=== PATIENT | male | born 1960 | race Caucasian/White ===

== ENCOUNTER 2021-10-14 12:59 | Emergency (ER) | payer BC, OTHER ==
[2021-10-14] MEDS ORDERED: Lidocaine 1% 10 ML MDV INJECT ONE (13:20)
[2021-10-14] MEDS ORDERED: Bupivacaine 0.5% 10 ML SDV INJECT ONE (13:20)
[2021-10-14] MEDS ORDERED: Diphtheria,Pertussis(Acell),Tetanus Vaccine 0.5 ML Syringe IM ONE (13:20)
== END 2021-10-14 15:30 | disposition home or self-care (01) ==
LOC: JD.ED 12:59
DX: S61.112A Laceration without foreign body of left thumb with damage to nail, initial encounter (principal); Z72.0 Tobacco use; Z23 Encounter for immunization; W26.8XXA Contact with other sharp object(s), not elsewhere classified, initial encounter; Y99.0 Civilian activity done for income or pay
CPT/HCPCS: 64450; 73140; 90471; 90715; 99283; J3490

== ENCOUNTER 2025-03-29 12:03 | Emergency (ER) | payer MEDICARE, OTHER ==
[2025-03-29] MEDS: Ondansetron 4 MG Tab.DIS PO STA (13:29)
== END 2025-03-29 14:29 | disposition home or self-care (01) ==
LOC: JD.ED 12:03
DX: H81.10 Benign paroxysmal vertigo, unspecified ear (principal); Z79.899 Other long term (current) drug therapy
CPT/HCPCS: 99283; A9270